=== PATIENT | female | born 1990 | race Asian ===

== ENCOUNTER 2018-08-07 10:54 | Outpatient (CLI) | payer OTHER | END 2018-08-07 10:59 | disposition short-term general hospital (02) | LOC: AMB 10:54 | DX: F99 Mental disorder, not otherwise specified (principal) | CPT/HCPCS: A0425; A0427 ==

== ENCOUNTER 2018-08-07 11:04 | Emergency (ER) | payer OTHER ==
[~2018-08-07] VITALS: Ht 162.6 cm; Wt 80.7 kg
[2018-08-07 12:19] LABS: PLATELET COUNT 359 K/uL (152-353)
[2018-08-07 12:30] LABS: POTASSIUM 4.5 mmol/L (3.6-5.2)
[2018-08-08 08:15] VITALS: BP 118/82; TEMP 97.9
== END 2018-08-08 09:25 | disposition home or self-care (01) ==
LOC: ED 11:04
PROVIDERS: Family Medicine
DX: R11.2 Nausea with vomiting, unspecified (principal); N93.9 Abnormal uterine and vaginal bleeding, unspecified; R56.9 Unspecified convulsions
CPT/HCPCS: 36415; 80053; 80307; 80329; 81000; 81025; 85027; 87077; 87086; 87088; 87185; 87186; 99283